=== PATIENT | female | born 1970 ===

== ENCOUNTER 2018-11-24 06:51 | Inpatient (IN) | payer OTHER ==
[2018-11-17 10:32] VITALS: BMI 24.2
[2018-11-24] MEDS ORDERED: Lactated Ringer's 1,000 ML IV ONE ×4 (08:35→12:18)
--- NOTE | 2018-11-24 09:23 | CP.PCM.HP ---
History of Present Illness - History of Present Illness History of Present Illness: 48yo female with symptomatic fibroid uterus. Pt with long h/o chronic pelvic pain and irregular bleeding. Pt had endometrial ablation in past. Discussed with patient all options and patient opting for definitive treatment with ERIN. Discussed the R/B/A of surgery with patient. PT consented for procedure. Present on Admission - Present on Admission Any Indicators Present on Admission: No History of DVT/PE: No History of Uncontrolled Diabetes: No Urinary Catheter: No Decubitus Ulcer Present: No Past Patient History - Past Medical History & Family History Past Medical History?: Yes - Past Social History Smoking Status: Never Smoked - CARDIAC Hx Cardiac Disorders: Yes Hx Hypercholesterolemia: Yes - PULMONARY Hx Respiratory Disorders: No - NEUROLOGICAL Hx Neurological Disorder: No - HEENT Hx HEENT Problems: No - RENAL Hx Chronic Kidney Disease: No - ENDOCRINE/METABOLIC Hx Endocrine Disorders: Yes Hx Diabetes Mellitus Type 2: Yes - HEMATOLOGICAL/ONCOLOGICAL Hx Blood Disorders: Yes Hx Anemia: Yes Hx Blood Transfusions: No - INTEGUMENTARY Hx Dermatological Problems: No - MUSCULOSKELETAL/RHEUMATOLOGICAL Hx Musculoskeletal Disorders: No - GASTROINTESTINAL Hx Gastrointestinal Disorders: No - GENITOURINARY/GYNECOLOGICAL Hx Genitourinary Disorders: No - PSYCHIATRIC Hx Emotional Abuse: No Hx Physical Abuse: No - SURGICAL HISTORY Hx Surgeries: Yes Other/Comment: WISDOM TOOTH EXTRACTION;RIGHT BREAST LUPECTOMY-10 YEARS AGO;C- SECTION X2;ABLATION X2 - ANESTHESIA Hx Anesthesia: Yes Hx Anesthesia Reactions: No Hx Malignant Hyperthermia: No Has any member of the family had a problem w/ anesthesia?: No Meds Allergies/Adverse Reactions: Allergies Allergy/AdvReac Type Severity Reaction Status Date / Time No Known Allergies Allergy Unverified 11/24/18 07:51 Physical Exam - Constitutional Appears: Well, No Acute Distress - Head Exam Head Exam: ATRAUMATIC - Eye Exam Eye Exam: Normal appearance, PERRL - ENT Exam ENT Exam: Mucous Membranes Moist - Respiratory Exam Respiratory Exam: Clear to Auscultation Bilateral, NORMAL BREATHING PATTERN - Cardiovascular Exam Cardiovascular Exam: REGULAR RHYTHM Additional comments: Uterus palpable almost to umbilicus. ~18-19wk size. - GI/Abdominal Exam GI & Abdominal Exam: Soft. absent: Distended, Tenderness Results - Vital Signs Recent Vital Signs: Last Vital Signs Temp 98.5 F 11/24/18 08:03 Pulse 79 11/24/18 08:09 Resp 18 05/21/19 08:03 BP 121/65 11/24/18 08:03 Pulse Ox 100 11/24/18 08:03 - Labs Labs: Laboratory Results - last 24 hr 11/24/18 08:15 Crossmatch See Detail BBK History Checked No verified bt - Imaging and Cardiology US - abdomen Status: Report reviewed by me Assessment & Plan - Assessment and Plan (Free Text) Assessment: Symptomatic fibroid uterus. Plan: As above. PT consented for ERIN. Discussed R/B/A of surgery. Pt medically cleared for anesthesia and surgery. PLan for routine postop observation and care. - Date & Time Date: 11/24/18 Time: 09:25
[2018-11-24] MEDS ORDERED: ePHEDrine 50 mg/ml Inj ONE (09:43)
[2018-11-24] MEDS ORDERED: Propofol 10 mg/ml Inj (20 ML) ONE (09:43)
[2018-11-24] MEDS ORDERED: Rocuronium 10 mg/ml (5 ml) ONE ×2 (09:44→11:07)
[2018-11-24] MEDS ORDERED: Succinylcholine 200 mg/10 ml Inj IV ONE (09:44)
[2018-11-24] MEDS ORDERED: Midazolam 2 MG/2 ML VIAL ONE (09:44)
[2018-11-24] MEDS ORDERED: cefOXitin IV 1 gm in Dextrose 1 GM/50 ML BAG IVPB ONE (09:57)
[2018-11-24] MEDS ORDERED: Bupivacaine 0.25% 300 ML in Sodium Chloride 0.9% 300 ML IS ONE (10:01)
[2018-11-24] MEDS ORDERED: Dexamethasone 4 mg/1 ml ONE (10:35)
[2018-11-24] MEDS ORDERED: Bupivacaine 0.5% Inj(30mL) ONE (10:47)
[2018-11-24] MEDS ORDERED: Neostigmine 1:1000 (1 mg/ml) Inj ONE (11:29)
[2018-11-24] MEDS ORDERED: Desflurane Inhalation Anesthetic Liq (240 ml) ONE (12:08)
[2018-11-24] MEDS ORDERED: Bupivacaine 0.5% Inj(30mL) IJ ONE (12:10)
[2018-11-24] MEDS: HYDROmorphone 0.5 mg/0.5 ml ISec IVP PRN ×6 (12:43→14:30)
--- NOTE | 2018-11-24 13:39 | PCM.SURG1 ---
Surgeon's Initial Post Op Note - Surgeon's Notes Surgeon: Yann Clerical And Office Support Workers: Ted Type of Anesthesia: General Endo Anesthesia Administered By: Mile Pre-Operative Diagnosis: Fibroid uterus Operative Findings: Fibroid uterus ~16-17wk size, normal uterus, normal tubes and ovaries bilaterally Post-Operative Diagnosis: Same Operation Performed: Supracervical hysterectomy, bilateral salpingectomy Specimen/Specimens Removed: Uterus with tubes (No cervix) Estimated Blood Loss: EBL {In ML}: 500 Blood Products Given: N/A Drains Used: No Drains Post-Op Condition: Good Date of Surgery/Procedure: 11/24/18 Time of Surgery/Procedure: 13:39
[2018-11-24] MEDS: Lactated Ringer's 1,000 ML IV SCH ×2 (16:07→21:15)
[2018-11-24] MEDS: Oxycodone/Acetaminophen 5/325 mg Tab PO PRN ×2 (16:11→23:31)
--- NOTE | 2018-11-25 00:10 | OP ---
PROCEDURE DATE: 11/24/2018 PREOPERATIVE DIAGNOSIS: Symptomatic fibroid uterus. POSTOPERATIVE DIAGNOSIS: Symptomatic fibroid uterus. PROCEDURE PERFORMED: Supracervical hysterectomy, bilateral salpingectomy via Pfannenstiel incision. OPERATIVE FINDINGS: Fibroid uterus, approximately 16 to 17 weeks' size; normal tubes and ovaries bilaterally; [id number] amount of pelvic adhesions. SURGEON: Rudy Lerner MD MECHANICAL INSPECTOR: Arelis Jean MD. Dr. Jean was present from the beginning of the procedure to the end of the procedure. Dr. Jean was integral in exposing the surgical field, controlling intraoperative bleeding, removal of adhesions, and surgical removal of the uterus. ANESTHESIA: General. ANESTHESIOLOGIST: Blossom Treadwell MD COMPLICATIONS: None. ESTIMATED BLOOD LOSS: 500 mL. FLUIDS: 3500 mL lactated Ringer's. URINE OUTPUT: 600 mL of clear urine at the end of the procedure. DESCRIPTION OF PROCEDURE: The patient was taken to the operating room where general anesthesia was found to be adequate. The patient was prepped and draped in normal sterile fashion in the dorsal supine position with leftward tilt. A Pfannenstiel skin incision was made with the scalpel. This was carried down through to the underlying layer of fascia with the scalpel. Midline defect was made in the fascial layer with the scalpel. The fascial incision was then extended bilaterally sharply with curved Selby scissors. The fascial layer was from the underlying rectus muscles both bluntly and sharply with curved Selby scissors. The rectus muscles were at the midline. The peritoneum was then identified, tented upward with Elza clamps x2, and entered sharply with Metzenbaum scissors. This peritoneal incision was then extended superiorly and inferiorly with good visualization of the urinary bladder. The abdomen and pelvis were explored and the above findings noted. The uterus was exteriorized. The round ligaments were electrocauterized and transected with LigaSure device bilaterally. The anterior surface of the broad ligament was dissected sharply off the anterior surface of the uterus. The fallopian tubes and suspensory ligaments of the ovaries were electrocauterized and transected with LigaSure device bilaterally. The uterine arteries were skeletonized bilaterally. The uterine arteries were clamped with Kash clamps x2 bilaterally, transected bilaterally, suture ligated with 0 Vicryl x2 bilaterally. The surgical pedicles were found to be hemostatic. A releasing bite with a clamp was completed bilaterally. At this point in the operation, due to severe pelvic adhesions, decision was made for supracervical hysterectomy. The uterus was removed from the cervix at the level just below the internal os. The specimen was sent to pathology. The cervical stump was suture ligated with a series of 0-Vicryl [id number] stitches. After suture ligation, the cervical stump was found to be hemostatic. The fallopian tubes were removed from the ovary and infundibulopelvic ligaments with electrocautery using LigaSure device. This was done bilaterally. After removal, the surgical sites were found to be hemostatic. The abdomen and pelvis were irrigated with copious amounts of warm normal saline. Reinspection of all surgical pedicles appeared hemostatic. The peritoneal layer was closed with a running stitch of 2-0 chromic. The rectus muscles were reapproximated at the midline with a running stitch of 2-0 chromic. The fascial layer was closed with a running stitch of 0 Vicryl. Subcutaneous tissue was closed with a running stitch of 3-0 plain. The skin was closed with a subcutaneous stitch of 3-0 Vicryl. The patient tolerated the procedure well. All sponge count, lap count, and needle counts were correct x2. The patient was given 1 g of Ancef just prior to the beginning of the procedure. There were no complications. The patient was taken to the recovery room in awake and stable condition. Rudy Lerner MD
[2018-11-25] MEDS: Oxycodone/Acetaminophen 5/325 mg Tab PO PRN ×5 (05:16→21:33)
[2018-11-25] MEDS: Lactated Ringer's 1,000 ML IV SCH ×3 (05:16→20:44)
[2018-11-25 06:25] LABS: BLOOD UREA NITROGEN 5 mg/dl (7-17); CALCIUM 7.4 mg/dL (8.4-10.2); GFR NON-AFRICAN AMERICAN > 60
[2018-11-25] MEDS: Insulin Regular 100 units/ml SC SCH ×2 (08:36→16:28)
[2018-11-25] MEDS: Enoxaparin 40 mg Syringe SC SCH (09:33)
[2018-11-25 10:49] LABS: HEMOGLOBIN 7.8 g/dL (12.0-16.0); MEAN CELL VOLUME 72.7 fl (81.0-99.0); MEAN CORPUSCULAR HEMOGLOBIN 22.7 pg (27.0-31.0); MEAN CORPUSCULAR HGB CONC 31.3 g/dL (33.0-37.0); RBC 3.44 Mil/uL (3.80-5.20); RED CELL DISTRIBUTION WIDTH 19.1 % (11.5-14.5); WHITE BLOOD COUNT 8.5 K/uL (4.8-10.8)
[2018-11-26] MEDS: Oxycodone/Acetaminophen 5/325 mg Tab PO PRN ×2 (01:56→06:14)
[2018-11-26] MEDS: Lactated Ringer's 1,000 ML IV SCH ×2 (05:09→05:10)
[2018-11-26] MEDS: Insulin Regular 100 units/ml SC SCH (08:05)
[2018-11-26] MEDS: Enoxaparin 40 mg Syringe SC SCH (08:06)
[2018-11-26 08:33] VITALS: BP 120/74; PULSE 77; RESP 20; TEMP 98.2; O2SAT 99
--- NOTE | 2018-11-26 09:57 | CP.PCM.PN ---
Subjective - Date & Time of Evaluation Date of Evaluation: 11/26/18 Time of Evaluation: 09:54 - Subjective Subjective: Pt without complaints. Pain well controlled. TOlerating regular diet. Ambulating well. Voiding without problems. No CP,SOB,N/V,F/C Objective - Vital Signs/Intake and Output Vital Signs (last 24 hours): Temp Pulse Resp BP Pulse Ox 98.2 F 77 20 120/74 99 11/26/18 08:32 11/26/18 08:32 11/26/18 08:32 11/26/18 08:32 11/26/18 08:32 - Medications Medications: Current Medications Enoxaparin Sodium (Lovenox) 40 mg SC DAILY [facility]; Protocol Last Admin: 11/26/18 08:06 Dose: 40 mg Lactated Ringer's (Lactated Ringer's) 1,000 mls @ 125 mls/hr IV .Q8H [facility] Last Admin: 11/26/18 05:10 Dose: Not Given Ibuprofen (Motrin Tab) 600 mg PO Q6 PRN PRN Reason: Pain, moderate (4-7) Insulin Human Regular (Humulin R) 0 units SC BIDAC [facility]; Protocol Last Admin: 11/26/18 08:05 Dose: Not Given Metformin HCl (Glucophage) 500 mg PO BID [facility] Last Admin: 11/26/18 08:06 Dose: 500 mg Ondansetron HCl (Zofran Inj) 4 mg IVP ONCE PRN PRN Reason: Nausea/Vomiting Oxycodone/Acetaminophen (Percocet 5/325 Mg Tab) 1 tab PO Q4 PRN PRN Reason: Pain, severe (8-10) Stop: 11/27/18 13:32 Last Admin: 11/26/18 06:14 Dose: 1 tab - Labs Labs: 11/25/18 10:15 11/25/18 06:00 - Constitutional Appears: Well, No Acute Distress - Head Exam Head Exam: NORMAL INSPECTION - Eye Exam Eye Exam: Normal appearance, PERRL - ENT Exam ENT Exam: Mucous Membranes Moist - Neck Exam Neck Exam: Full ROM - Respiratory Exam Respiratory Exam: NORMAL BREATHING PATTERN - Cardiovascular Exam Cardiovascular Exam: REGULAR RHYTHM - GI/Abdominal Exam GI & Abdominal Exam: Soft. absent: Distended, Tenderness Additional comments: Incision C/D/I. Qpump device removed without problem. Pt toerated well. - Extremities Exam Extremities Exam: Normal Inspection. absent: Calf Tenderness, Tenderness Assessment and Plan - Assessment and Plan (Free Text) Assessment: POD#2 s/p MATHEW. Pt recovering well Plan: D/C home with postop instructions and precautions. F/U office 1 week
--- NOTE | 2018-11-26 09:58 | CP.PCM.DIS ---
Provider - Provider Date of Admission: 11/24/18 13:31 Attending physician: Rudy Lerner MD Time Spent in preparation of Discharge (in minutes): 10 Diagnosis - Discharge Diagnosis (1) Fibroid uterus Status: Chronic Hospital Course - Lab Results Lab Results: Most Recent Lab Values WBC 8.5 K/uL (4.8-10.8) 11/25/18 10:15 RBC 3.44 Mil/uL (3.80-5.20) L 11/25/18 10:15 Hgb 7.8 g/dL (12.0-16.0) L D 11/25/18 10:15 Hct 25.0 % (34.0-47.0) L 11/25/18 10:15 MCV 72.7 fl (81.0-99.0) L 11/25/18 10:15 MCH 22.7 pg (27.0-31.0) L 11/25/18 10:15 MCHC 31.3 g/dL (33.0-37.0) L 11/25/18 10:15 RDW 19.1 % (11.5-14.5) H 11/25/18 10:15 Plt Count 336 K/uL (130-400) 11/25/18 10:15 Sodium 137 mmol/l (132-148) 11/25/18 06:00 Potassium 3.6 MMOL/L (3.6-5.0) 11/25/18 06:00 Chloride 108 mmol/L (98-107) H 11/25/18 06:00 Carbon Dioxide 23 mmol/L (22-30) 11/25/18 06:00 Anion Gap 10 (10-20) 11/25/18 06:00 BUN 5 mg/dl (7-17) L 11/25/18 06:00 Creatinine 0.6 mg/dl (0.7-1.2) L 11/25/18 06:00 Est GFR ( Amer) > 60 11/25/18 06:00 Est GFR (Non-Af Amer) > 60 11/25/18 06:00 POC Glucose (mg/dL) 139 mg/dL (65-110) H 11/26/18 05:16 Random Glucose 114 mg/dL (65-105) H 11/25/18 06:00 Calcium 7.4 mg/dL (8.4-10.2) L 11/25/18 06:00 Blood Type B POSITIVE 11/24/18 08:15 Blood Type Confirm B POSITIVE 11/24/18 09:40 Antibody Screen Negative 11/24/18 08:15 Crossmatch See Detail 11/24/18 08:15 BBK History Checked No verified bt 11/24/18 08:15 - Date & Time of H&P Date of H&P: 11/24/18 Time of H&P: 08:00 Discharge Exam - Head Exam Head Exam: NORMAL INSPECTION Discharge Plan - Follow Up Plan Condition: GOOD Disposition: HOME/ ROUTINE Instructions: Hysterectomy (DC), Hysterectomy, Abdominal or Laparoscopic Surgery Additional Instructions: follow up with dr lerner 1 week Referrals: Rudy Lerner MD [Staff Provider] -
== END 2018-11-26 11:40 | disposition home or self-care (01) | DRG 743 ==
LOC: H.OPSURG 06:51 → H.MEDSURG1 13:31
PROVIDERS: ADMIT Obstetrics & Gynecology; ATTEND Obstetrics & Gynecology
PROC: 0UT70ZZ Resection of Bilateral Fallopian Tubes, Open Approach (ICD-10-PCS; 2018-11-24)
PROC: 0UT90ZL Resection of Uterus, Supracervical, Open Approach (ICD-10-PCS; principal; 2018-11-24 09:15)
DX: D25.9 Leiomyoma of uterus, unspecified (principal); E11.9 Type 2 diabetes mellitus without complications; E78.00 Pure hypercholesterolemia, unspecified; N73.6 Female pelvic peritoneal adhesions (postinfective); Z79.84 Long term (current) use of oral hypoglycemic drugs